=== PATIENT | male | born 1940 | race Caucasian/White ===

== ENCOUNTER 2016-09-25 07:34 | Emergency (ER) | payer MEDICARE, OTHER ==
[~2016-09-25 07:34] MED LIST: ARICEPT DPS5 MG PO; ASA CHILDREN'S81 MG PO; DIOVAN40 MG PO; ELIQUIS5 MG PO; FLONASE 0.05% D16 GM NS; KENALOG CR 0.0280 GM TP; LOPRESSOR DPS12.5 MG PO; MIRALAX PACKET17 GM PO; MOBIC15 MG PO; MULTIPLE VITAM1 EACH PO; NEURONTIN DPS100 MG PO; OMEGA-3 DPS1000 MG PO; SINGULAIR10 MG PO; SURFAK DPS240 MG PO; SYNTHROID DPS0.05 MG PO; TYLENOL DPS325 MG PO; TYLENOL325 MG PO; ULTRAM DPS50 MG PO; VITAMIN D31000 UNIT PO; ZOCOR DPS20 MG PO
--- NOTE | 2016-09-28 13:18 | ER ---
ADMIT: 09/25/2016 RM/LOC: ER [facility] MR#: [id number] [id number] [place] [id number] [address] [place] [address] Emergency Room Report SEX: M AGE: 76 : 1940 DATE: 09/25/2016 Please refer to my T-sheet for complete H and P. HISTORY OF PRESENT ILLNESS: Briefly, the patient is a 76-year-old, who had several teeth pulled a week and a half ago. He had some bleeding for the last couple days from left lower extraction site. He is on Eliquis and aspirin. He did not take his Eliquis this morning, came in for evaluation. PHYSICAL EXAMINATION: VITAL SIGNS: Stable. GENERAL: No acute distress. HEENT: His left lower posterior molar has a suture line that is stitched and holding together, but there is some oozing around it. EMERGENCY DEPARTMENT COURSE: I injected the area with lidocaine with epi. I then soaked a gauze in lidocaine with epi and had him hold pressure, he was improved. I had a long discussion about the Eliquis and the need to follow up tomorrow, they were comfortable with that. ASSESSMENT: Bleeding, status post tooth extraction, on anticoagulation. PLAN: Hold his Eliquis for the next couple days. Return if worse. See his dentist tomorrow. Rober Macias MD/ gab JOB #: [id number] CC: Rober Macias MD, Attending Physician
== END 2016-09-25 09:01 | disposition home or self-care (01) ==
LOC: ER 07:34
DX: K91.840 Postprocedural hemorrhage of a digestive system organ or structure following a digestive system procedure (principal); I10 Essential (primary) hypertension

== ENCOUNTER 2016-09-25 21:02 | Emergency (ER) | payer MEDICARE, OTHER ==
--- NOTE | 2016-10-22 21:25 | ER ---
ADMIT: 09/25/2016 RM/LOC: ER [facility] MR#: [id number] [address] [place] [address] [place] [address] Emergency Room Report SEX: M AGE: 76 : 1940 DATE: 09/25/2016 A 76-year-old had a tooth distraction several days ago. He was on Xarelto, need to help up prior to the tooth extraction and restarted it and had some postop bleeding from the extraction site, held the Xarelto again x 2 days, comes in today with bleeding. He was in the Emergency Department earlier in the morning when he stopped, got home, started rebleeding, came back. At this time, Helicon shield was placed over the bleeding site. Gauze dressing over with good resolution of the bleeding. He was watched in the Emergency Department for 1 hour without recurrence subsequent discharge. Instructed to follow up with his dentist tomorrow. DIAGNOSIS: Post tooth extraction bleed. Eitan Carlisle MD/ gab JOB #: [id number] CC: Sb Tolbert MD, Attending Physician Johnathon Funes DO, Family Physician
== END 2016-09-25 23:05 | disposition home or self-care (01) ==
LOC: ER 21:02
DX: K91.840 Postprocedural hemorrhage of a digestive system organ or structure following a digestive system procedure (principal); Z79.01 Long term (current) use of anticoagulants; Y83.8 Other surgical procedures as the cause of abnormal reaction of the patient, or of later complication, without mention of misadventure at the time of the procedure